=== PATIENT | female | born 1950 | race Caucasian/White ===

== ENCOUNTER → 2023-04-27 | Outpatient (CLI) | payer MEDICARE, SELFPAY ==
--- NOTE | 2023-04-27 09:54 | RAD_ITS ---
EXAM: XR PELVIS, 1 OR 2 VIEWS CLINICAL INDICATION: Inflammatory polyarthropathy TECHNIQUE: Frontal view of the pelvis. COMPARISON: No relevant prior studies available. FINDINGS: BONES/JOINTS: Unremarkable. No displaced fracture. No destructive or sclerotic lesions. Note that overlapping bowel shadows may however obscure fine detail. Sacroiliac joints are unremarkable. No widening of the pubic symphysis. The articular structures are unremarkable. SOFT TISSUES: Unremarkable. No soft tissue swelling or gas. RAD/Pelvis 1 or 2 Views IMPRESSION: No evidence of displaced pelvic fracture. Electronically Signed: Myles Huerta MD at 23:31 EST ,
[2023-04-27 12:34] LABS: Color, Urine Yellow (Yellow); Glucose, Dipstick Normal (Normal); Ketone-Dipstick Negative (Negative); Leukocyte Esterase-Dipstick 25 /ul (Negative); Nitrite-Dipstick Negative (Negative); Occult Blood-Urine Negative /ul (Negative); Protein-Dipstick Negative (Negative); Urine Bilirubin Dipstick Negative (Negative); Urine Clarity Sl. Cloudy (Clear); Urine Urobilinogen Normal (Normal)
[2023-04-27 12:36] LABS: Erythrocyte Sedimentation Rate 45 mm/hr (0-30)
[2023-04-27 12:38] LABS: Absolute Lymphocyte Count 2.47 X10^3/uL (0.83-4.51); Absolute Neutrophil Count 4.4 X10^3/uL (2.0-7.7); Basophil# 0.05 X10^3/uL; Basophil% 0.7 % (0-1); Eosinophil# 0.03 X10^3/uL; Eosinophils% 0.4 % (0-5); Hematocrit 39.7 % (37-47); Hemoglobin 12.5 g/dL (12.0-15.0); Lymphocyte # 2.47 X10^3/ul (0.83-4.51); Lymphocyte % 32.4 % (19-41); Mean Corp Hgb Conc 31.5 g/dL (32-36); Mean Corpuscular Hgb 29.2 pg (27.0-32.0); Mean Corpuscular Volume 92.8 fL (81-99); Mean Platelet Vol. 8.7 fl (6.2-12.0); Monocyte# 0.66 X10^3/uL; Monocyte% 8.7 % (0-10); NRBC Flagged by Analyzer 0 % (0-5); Neutrophil # 4.39 X10^3/uL (2.7-7.7); Neutrophil % 57.5 % (47-70); Platelet Count 290 K/mm3 (150-450); RBC Distribution Width SD 47.6 fl (35.1-43.9); Red Blood Count 4.28 M/mm3 (4.2-5.4); White Blood Count 7.6 K/mm3 (4.4-11.0)
[2023-04-27 13:24] LABS: Hepatitis B Surface Antibody Non-Reactive; Hepatitis B Surface Antigen Non-Reactive (Nonreactive); Hepatitis C Antibody Non-Reactive (Nonreactive)
[2023-04-27 14:08] LABS: ALB/GLOB Ratio 0.8 RATIO (0.9-2.4); AST(SGOT) 18 U/L (15-37); Alanine Aminotransfer ALT/SGPT 20 U/L (13-56); Albumin, Serum 3.7 g/dL (3.2-5.0); Alkaline Phosphatase 63 U/L (45-117); Anion Gap 4 (5-15); BUN 11 mg/dL (7-18); BUN/Creat Ratio 14.9 RATIO (10-20); CRP 5.51 mg/L (0.0-3.0); Calcium,Total 9.3 mg/dL (8.5-10.1); Chloride 110 mmol/L (98-107); Creatinine, Serum 0.74 mg/dL (0.55-1.02); EST Glomerular Filtration Rate 82 mL/min (>60); Est Glom Filt Rate - Afr Amer 100 mL/min (>60); Globulin 4.8 g/dL (2.2-4.2); Glucose 125 mg/dL (74-106); Potassium 3.9 mmol/L (3.5-5.1); Protein, Total 8.5 g/dL (6.4-8.2); Protein, Urine (Random) < 6.0 mg/dL (<11.9); Rheumatoid Factor < 10.0 IU/mL (<15); Sodium Level 140 mmol/L (136-145)
[2023-04-28 11:09] LABS: ANTINUCLEAR ANTIBODIES DIRECT Negative (Negative)
[2023-04-29 13:08] LABS: Albumin 3.7 g/dL (2.9-4.4); Alpha-1-Globulins 0.3 g/dL (0.0-0.4); Alpha-2-Globulins 0.8 g/dL (0.4-1.0); CCP IgG Antibodies 6 units (0-19); Gamma Globulin 2.1 g/dL (0.4-1.8); Immunoglobulin A 21 mg/dL (64-422); Immunoglobulin G 519 mg/dL (586-1602); Immunoglobulin M 2599 mg/dL (26-217); PROEL- TOTAL PROTEIN 7.8 g/dL (6.0-8.5); PROELU- Albumin, Urine 26.5 % (.); PROELU- Alpha-1-Globulin,Ur 6.1 % (.); PROELU- Alpha-2-Globulin,Ur 11.7 % (.); PROELU- Beta Globulin, Ur 32.3 % (.); PROELU- Gamma Globulin, Ur 23.4 % (.); PROELU- M-Spike, Ur 14.9 % (Not Observed); Total Protein, Ur < 4.0 mg/dL (Not Estab.)
== END | disposition home or self-care (01) ==
PROVIDERS: Referring Provider Internal Medicine Rheumatology; Visit Provider Internal Medicine Rheumatology
DX: M06.4 Inflammatory polyarthropathy (principal)
CPT/HCPCS: 36415; 72170; 80053; 81002; 82570; 82784; 84156; 84165; 84166; 85025; 85652; 86038; 86140; 86200; 86334; 86431; 86706; 86803; 87340

== ENCOUNTER → 2023-11-26 | Outpatient (CLI) | payer MEDICARE, SELFPAY ==
--- NOTE | 2023-11-26 13:27 | CT_ITS ---
STUDY: CT CHEST, ABDOMEN T PELVIS WITH CONTRAST REASON FOR EXAM: Female, 72 years old. ABNORMAL LABS-R/O NHL RADIATION DOSAGE (If Supplied By Facility): CTDIvol = ( 12.20 ) mGy, DLP = ( 1457.09 ) mGycm TECHNIQUE: Transaxial imaging was performed following intravenous administration of IV 100mL Isovue-370. Individualized dose optimization techniques were used for this CT. COMPARISON: No relevant priors. FINDINGS: CHEST The lungs are normal. Focal calcified pleural plaques along the right hemidiaphragm. No coronary artery calcification is seen. Normal mediastinum. Normal hilar regions. Normal unenhanced pulmonary arteries. Minimal atherosclerotic plaque formation of the aortic arch. There are degenerative changes of the thoracic spine. ABDOMEN Normal liver. Normal gallbladder and extrahepatic biliary system. Normal spleen. Normal pancreas. Normal bilateral adrenal glands. Mild degree of bilateral hydronephrosis. There is a small hiatal hernia. Normal small intestine. There are multiple colonic diverticula consistent with diverticulosis. The appendix is visualized and appears normal. There is diffuse atherosclerotic calcification of the abdominal aorta and its major visceral branches, without a demonstrated aneurysm. Normal inferior vena cava. Normal retroperitoneum. Small benign-appearing bilateral inguinal lymph nodes. Venous collaterals seen within the deep subcutaneous tissues overlying the lower anterior upper pelvic wall. Ventral hernia containing fat. There are degenerative changes of the visualized lumbar spine. PELVIS Normal urinary bladder. There is no pelvic fluid. There is no pelvic lymphadenopathy or mass lesion. There is diffuse atherosclerotic calcification of the pelvic arteries. CT/CT Chest, Abd, Pel w/Contrast IMPRESSION: Calcified right pleural plaques. Mild degree of bilateral hydronephrosis. No mass lesion is seen. Electronically Signed: Perez Robles MD at 14:43 EDT ,
--- NOTE | 2023-11-26 13:27 | CT_ITS ---
STUDY: CT SOFT TISSUE NECK WITH CONTRAST REASON FOR EXAM: Female, 72 years old. ABNORMAL LABS-R/O NHL RADIATION DOSAGE (If Supplied By Facility): CTDIvol = ( 12.20 ) mGy, DLP = ( 1457.09 ) mGycm TECHNIQUE: The patient was scanned in a multi-detector CT scanner. High resolution transaxial imaging was performed following intravenous administration of IV 100mL Isovue-370. Sagittal and coronal images were reconstructed. Individualized dose optimization techniques were used for this CT. COMPARISON: None. FINDINGS: Normal bilateral parotid glands. Normal bilateral diamond powder mixer spaces. Normal bilateral parapharyngeal spaces. Normal bilateral carotid spaces. Normal bilateral sublingual and submandibular glands and spaces. Normal visualized nasopharynx. Normal retropharyngeal space. Normal perivertebral space. Normal visualized bilateral faucial tonsils. The visualized tongue, tongue base and oropharynx are normal. The visualized cervical lymph nodes (levels I-) are within normal size limits, and maintain normal morphology. There is no demonstrated solid or cystic mass lesion. There is no abnormal contrast enhancement. Normal epiglottis, bilateral vallecula and hypopharynx. The pre-epiglottic and paraglottic adipose spaces are normal. Normal visualized bilateral piriform sinuses, aryepiglottic folds, vocal cords, and arytenoid-cricoid articulations. Normal subglottic trachea. Normal bilateral lobes of the thyroid gland. Normal visualized pulmonary apices. Normal visualized paranasal sinuses. There is multilevel degenerative changes of the cervical spine. Loss of the normal cervical lordosis. CT/Soft Tissue Neck WITH Contrast IMPRESSION: No significant abnormality is seen. Electronically Signed: Perez Robles MD at 14:39 EDT ,
== END | disposition home or self-care (01) ==
PROVIDERS: PCP Family Medicine; Referring Provider Internal Medicine Medical Oncology; Visit Provider Internal Medicine Medical Oncology
DX: R76.8 Other specified abnormal immunological findings in serum (principal); R70.0 Elevated erythrocyte sedimentation rate
CPT/HCPCS: 70491; 71260; 74177; Q9967